=== PATIENT | male | born 1995 | race Caucasian/White ===

== ENCOUNTER 2020-06-08 04:48 | Emergency (ER) | payer OTHER ==
[~2020-06-08] VITALS: Ht 177.8 cm; Wt 89.8 kg
[2020-06-08] MEDS ORDERED: TYLENOR (05:14)
== END 2020-06-08 06:52 | disposition home or self-care (01) ==
LOC: ER 04:48
DX: K08.89 Other specified disorders of teeth and supporting structures (principal)